=== PATIENT | female | born 1980 | race Caucasian/White ===

== ENCOUNTER 2018-09-13 09:29 | Outpatient (CLI) | payer OTHER | END 2018-09-13 15:57 | disposition home or self-care (01) | LOC: EKG 09:29 | DX: I10 Essential (primary) hypertension (principal) ==

== ENCOUNTER 2018-09-15 15:02 | Inpatient (IN) | payer OTHER ==
[~2018-09-15] VITALS: Ht 157.5 cm; Wt 56.7 kg
== END 2018-09-17 14:54 | disposition home or self-care (01) | DRG 583 ==
LOC: O/R 09-16 06:10 → SURH 09-16 06:10
PROVIDERS: Plastic Surgery; ADMIT Surgery
PROC: 0HPT0NZ Removal of Tissue Expander from Right Breast, Open Approach (ICD-10-PCS; 2018-09-16)
PROC: 0HTV0ZZ Resection of Bilateral Breast, Open Approach (ICD-10-PCS; principal; 2018-09-16 20:45)
PROC: 0HPU0NZ Removal of Tissue Expander from Left Breast, Open Approach (ICD-10-PCS; 2018-09-16 20:45)
DX: C50.812 Malignant neoplasm of overlapping sites of left female breast (principal); C50.811 Malignant neoplasm of overlapping sites of right female breast; Z90.13 Acquired absence of bilateral breasts and nipples; Z15.01 Genetic susceptibility to malignant neoplasm of breast

== ENCOUNTER 2018-09-15 16:30 | Outpatient (CLI) | payer OTHER | END 2018-09-15 18:00 | disposition home or self-care (01) | LOC: LAB 16:30 | DX: Z01.818 Encounter for other preprocedural examination (principal) ==

== ENCOUNTER → 2018-12-08 14:47 | Outpatient (CLI) | payer OTHER | END | disposition home or self-care (01) | LOC: LAB 14:47 | DX: Z01.818 Encounter for other preprocedural examination (principal) ==

== ENCOUNTER 2018-12-09 06:30 | Day surgery (SDC) | payer OTHER | END 2018-12-09 14:26 | disposition home or self-care (01) | LOC: CIR.AMB 06:30 | PROVIDERS: Plastic Surgery | PROC: 0HPT0JZ Removal of Synthetic Substitute from Right Breast, Open Approach (ICD-10-PCS; 2018-12-09) | PROC: 0HRV0JZ Replacement of Bilateral Breast with Synthetic Substitute, Open Approach (ICD-10-PCS; 2018-12-09) | PROC: 0H0V07Z Alteration of Bilateral Breast with Autologous Tissue Substitute, Open Approach (ICD-10-PCS; 2018-12-09) | PROC: 0HPU0JZ Removal of Synthetic Substitute from Left Breast, Open Approach (ICD-10-PCS; principal; 2018-12-09 10:15) | DX: Z15.01 Genetic susceptibility to malignant neoplasm of breast (principal); Z90.13 Acquired absence of bilateral breasts and nipples | CPT/HCPCS: 19328; 19366; 19342; C1789 ==

== ENCOUNTER 2020-08-08 13:19 | Outpatient (CLI) | payer OTHER | END 2020-08-08 13:32 | disposition home or self-care (01) | LOC: SONOGRAMA 13:19 | PROVIDERS: ATTEND Surgery | DX: R10.2 Pelvic and perineal pain (principal); N83.291 Other ovarian cyst, right side ==

== ENCOUNTER 2021-01-24 13:51 | Outpatient (CLI) | payer OTHER | END 2021-01-24 14:13 | disposition home or self-care (01) | LOC: SONOGRAMA 13:51 → MAMO-SONO 15:15 | PROVIDERS: ATTEND Surgery | DX: N60.11 Diffuse cystic mastopathy of right breast (principal); N60.12 Diffuse cystic mastopathy of left breast; Z15.01 Genetic susceptibility to malignant neoplasm of breast ==

== ENCOUNTER 2021-07-03 10:40 | Outpatient (CLI) | payer OTHER | END 2021-07-03 11:05 | disposition home or self-care (01) | LOC: SONOGRAMA 10:40 | PROVIDERS: ATTEND Obstetrics & Gynecology | DX: R10.2 Pelvic and perineal pain (principal) ==

== ENCOUNTER 2021-10-30 09:36 | Outpatient (CLI) | payer OTHER | END 2021-10-30 09:49 | disposition home or self-care (01) | LOC: SONOGRAMA 09:36 | PROVIDERS: ATTEND Obstetrics & Gynecology | DX: R10.2 Pelvic and perineal pain (principal); N80.9 Endometriosis, unspecified ==

== ENCOUNTER 2023-11-17 12:00 | Outpatient (CLI) | payer OTHER | END 2023-11-17 12:01 | disposition home or self-care (01) | LOC: NUCLEAR 12:00 | PROVIDERS: ATTEND Physical Medicine & Rehabilitation | DX: M13.0 Polyarthritis, unspecified (principal) ==